=== PATIENT | male | born 1975 | race Native Hawaiian/Other Pacific Islander ===

== ENCOUNTER 2016-11-20 16:52 | Emergency (ER) | payer SELFPAY ==
[2016-11-20 18:06] VITALS: BP 136/82
[2016-11-20] MEDS ORDERED: TETRACAINE 0.5% OU PRN (19:55)
--- NOTE | 2016-11-20 19:59 | Emergency Department Report ---
ED Eye Problem HPI - General Chief complaint: Eye Problems Stated complaint: LEFT EYE INJURY Time Seen by Provider: 11/20/16 19:55 Source: patient Mode of arrival: Ambulatory Limitations: Language Barrier - History of Present Illness MD chief complaint: eye pain, eye injury (left) -: Sudden Onset Description: sudden Location: left eye Place: home If Injury: direct trauma Eye Symptoms: burning, redness, pain Severity scale (0 -10): 6 If Pain, Quality: sharp Consistency: constant Context: injury Associated Symptoms: none Treatments Prior to Arrival: none - Related Data Previous Rx's Medication Instructions Recorded Last Taken Type Ibuprofen [Motrin] 800 mg PO TID PRN #20 tablet 04/09/13 Unknown Rx Polymyxin B Sulf/Trimethoprim 1 drop OP QID #1 bottle 11/20/16 Unknown Rx [Polytrim Eye Drops [id number]/0.1%] Allergies Allergy/AdvReac Type Severity Reaction Status Date / Time acetaminophen AdvReac CONSTIPATED Verified 11/20/16 17:55 ibuprofen AdvReac CONSTIPATED Verified 11/20/16 17:55 ED Review of Systems ROS: Stated complaint: LEFT EYE INJURY Other details as noted in HPI Comment: All other systems reviewed and negative Eyes: eye pain, eye discharge Respiratory: no symptoms reported ED Past Medical Hx - Past Medical History Hx Headaches / Migraines: Yes Additional medical history: CHRONIC NECK PAIN - Surgical History Past Surgical History?: No Additional Surgical History: neck surgery - Family History Family history: hypertension - Social History Smoking Status: Never Smoker Substance Use Type: None - Medications Home Medications: Home Medications Medication Instructions Recorded Confirmed Last Taken Type Ibuprofen [Motrin] 800 mg PO TID PRN #20 tablet 04/09/13 Unknown Rx Polymyxin B Sulf/Trimethoprim 1 drop OP QID #1 bottle 11/20/16 Unknown Rx [Polytrim Eye Drops [id number]/0.1%] ED Physical Exam - General Limitations: Language Barrier General appearance: alert - Head Head exam: Present: atraumatic - Eye Eye exam: Present: other (left eye, with bloody conjunctiva, obvious corneal abrasion.) - Neck Neck exam: Present: normal inspection - Respiratory Respiratory exam: Present: normal lung sounds bilaterally - Cardiovascular Cardiovascular Exam: Present: regular rate - GI/Abdominal GI/Abdominal exam: Present: soft - Extremities Exam Extremities exam: Present: normal inspection - Back Exam Back exam: Present: normal inspection - Neurological Exam Neurological exam: Present: alert, oriented X3 - Psychiatric Psychiatric exam: Present: normal affect - Skin Skin exam: Present: warm, dry ED Course Vital Signs 11/20/16 18:03 Temperature 98.3 F Pulse Rate 80 Respiratory 16 Rate Blood Pressure 136/82 O2 Sat by Pulse 97 Oximetry - Reevaluation(s) Reevaluation #1: 11/20/16 20:30 Eye washed and cleaned In a sterile manner. Patient advised about proper follow -up. Critical care attestation.: If time is entered above; I have spent that time in minutes in the direct care of this critically ill patient, excluding procedure time. ED Disposition Clinical Impression: Corneal abrasion Disposition: DC-01 TO HOME OR SELFCARE Is pt being admited?: No Does the pt Need Aspirin: No Condition: Stable Prescriptions: Polymyxin B Sulf/Trimethoprim [Polytrim Eye Drops [id number]/0.1%] 1 drop OP QID #1 bottle Referrals: PRIMARY CAREMD [Primary Care Provider] - 3-5 Days JOSEPHINE BRONSON MD [Staff Physician] - 3-5 Days
[2016-11-20] MEDS: TETRACAINE 0.5% OU ONE (20:33)
[2016-11-20] MEDS: FUL-GLO OP ONE (20:33)
== END 2016-11-20 20:56 | disposition home or self-care (01) ==
LOC: ED 16:52
DX: S05.02XA Injury of conjunctiva and corneal abrasion without foreign body, left eye, initial encounter (principal); X58.XXXA Exposure to other specified factors, initial encounter; Y93.9 Activity, unspecified; Y92.9 Unspecified place or not applicable; Y99.9 Unspecified external cause status
CPT/HCPCS: 99282